=== PATIENT | male | born 1955 | race Caucasian/White ===

== ENCOUNTER 2018-02-02 08:47 | Outpatient (CLI) | payer MEDICARE, SELFPAY ==
[2018-02-02 09:30] VITALS: BP 140/93; PULSE 66; RESP 18; TEMP 36.5
== END 2018-02-02 09:45 | disposition home or self-care (01) ==
LOC: INF 08:50
PROVIDERS: PCP Nurse Practitioner Family; Visit Provider Nurse Practitioner Family
DX: Z79.01 Long term (current) use of anticoagulants (principal); T50.905A Adverse effect of unspecified drugs, medicaments and biological substances, initial encounter
CPT/HCPCS: 96372

== ENCOUNTER → 2018-03-27 13:38 | Outpatient (POV) | payer MEDICARE, SELFPAY ==
[2018-03-27 14:53] LABS: INR 1.83 (0.9-1.1); Prothrombin Time 19.9 seconds (9.4-11.8)
[2018-03-27 16:07] LABS: Basophils % 0.5 % (0.1-2.0); Eosinophils # 0.1 K/mm3 (0.0-0.4); Eosinophils % 1.4 % (0.1-12.0); Hematocrit 42.8 % (42.0-52.0); Hemoglobin 13.5 g/dL (14.1-18.0); Lymphocytes # 1.8 K/mm3 (0.7-4.5); Lymphocytes % 21.6 K/mm3 (10-50); Mean Corpuscular HGB Conc 31.4 g/dL (31.8-35.4); Mean Corpuscular Hemoglobin 30.6 pg (27.0-31.2); Mean Corpuscular Volume 97.3 fl (80-94); Mean Platelet Volume 10.4 fl (7.4-10.4); Monocytes # 0.5 K/mm3 (0.1-1.0); Monocytes % 6.2 % (1.7-9.3); Neutrophils # 5.9 K/mm3 (1.8-7.8); Neutrophils % 70.3 % (37.0-80.0); Platelet Count 146 K/mm3 (142-424); Red Cell Distribution Width 15.6 % (11.5-17.5); White Blood Count 8.5 K/mm3 (4.8-10.8)
[2018-03-27 16:22] LABS: Alanine Aminotransferase 109 U/L (12-78); Albumin Level 3.4 gm/dL (3.4-5.0); Albumin/Globulin Ratio 0.9 (1.1-1.8); Alkaline Phosphatase 74 U/L (46-116); Anion Gap 12.2 mEq/L (5-15); Aspartate Amino Transferase 75 U/L (15-37); Bilirubin,Total 0.4 mg/dL (0.2-1.0); Blood Urea Nitrogen 31 mg/dL (7-18); Calcium 9.1 mg/dL (8.5-10.1); Carbon Dioxide 26 mmol/L (21.0-32.0); Chloride 106 mmol/L (98-107); Creatinine,Serum 2.34 mg/dL (0.70-1.30); Estimated Glomerular Filt Rate 28 ml/min (>60); Ferritin 423 ng/mL (8-388); GFR (African American) 34 ML/MIN (>60); Glucose 82 mg/dL (74-106); Potassium 4.2 mmoL/L (3.5-5.1); Sodium 140 mmol/L (136-145); Total Protein,Serum 7.4 gm/dL (6.4-8.2)
[2018-03-29 08:23] LABS: Alpha-1-Antitrypsin 100 mg/dL (90-200); Immunoglobulin A, Qn 563 mg/dL (61-437); Immunoglobulin G, Qn 1037 mg/dL (700-1600); Iron 95 ug/dL (38-169); Iron Saturation 33 % (15-55); UIBC 193 ug/dL (111-343)
[2018-03-30 06:24] LABS: Actin (Smooth Muscle) Antibody 7 Units (0-19); Mitochondrial (M2) Antibody <20.0 Units (0.0-20.0)
[2018-03-30 06:25] LABS: Angiotensin Converting Enzyme <15 U/L (14-82); Deamidated Gliadin Abs, IgA 1 units (0-19); Deamidated Gliadin Abs, IgG 1 units (0-19); Endomysial IgA Antibody Negative (Negative); Immunoglobulin M, Qn 99 mg/dL (20-172); Liver-Kidney Microsomal Ab <1.0 Units (0.0-20.0); Tissue Transglutaminase IgA Ab <2 U/mL (0-3); Tissue Transglutaminase IgG Ab <2 U/mL (0-5)
[2018-03-30 15:24] LABS: Antinuclear Antibodies, IFA Negative (.); Phenotype (PI) MZ (.)
[2018-03-31 06:17] LABS: ALT (SGPT) P5P 91 IU/L (0-55); Alpha 2-Macroglobulins, Qn 271 mg/dL (110-276); Apolipoprotein A-1 102 mg/dL (101-178); Bilirubin, Total 0.3 mg/dL (0.0-1.2); Fibrosis Score 0.72 (0.00-0.21); GGT 61 IU/L (0-65); Haptoglobin 31 mg/dL (34-200); Necroinflammat Activity Grade A3-Severe activity (.); Necroinflammat Activity Score 0.68 (0.00-0.17)
[2018-03-31 10:27] LABS: Reticulin IgA Antibody Negative titer (Neg:<1:2.5)
== END ==
PROVIDERS: Visit Provider Nurse Practitioner Acute Care
DX: R94.5 Abnormal results of liver function studies (principal); Z79.01 Long term (current) use of anticoagulants; Z51.81 Encounter for therapeutic drug level monitoring; D64.9 Anemia, unspecified
CPT/HCPCS: 36415; 80053; 82104; 82164; 82728; 82784; 83516; 83550; 85025; 85610; 86038; 86255; 86256; 86376

== ENCOUNTER → 2018-04-04 07:51 | Outpatient (CLI) | payer MEDICARE, SELFPAY ==
--- NOTE | 2018-04-04 07:55 | US_ITS ---
US abdomen limited History:Elevated liver enzymes with nausea Ordering Physician:Mila Castro Patient Age: 62 years Comparison:None Findings: Pancreas:Poorly demonstrated due to overlying bowel gas Liver:No focal liver lesions demonstrated. Homogeneous echogenicity. No intrahepatic biliary ductal dilatation evident Right Kidney:3.7 x 4.3 cm right parapelvic renal cyst. Normal size and echogenicity. No hydronephrosis Gallbladder:No gallstones, gallbladder wall thickening, pericholecystic fluid, or biliary dilatation. Impression: Right parapelvic renal cyst otherwise negative right upper quadrant ultrasound. No gallstones
== END ==
PROVIDERS: PCP Nurse Practitioner Family; Visit Provider Nurse Practitioner Acute Care
DX: R94.5 Abnormal results of liver function studies (principal)
CPT/HCPCS: 76705

== ENCOUNTER → 2018-06-23 07:09 | Outpatient (CLI) | payer MEDICARE, SELFPAY ==
[2018-06-23 08:43] LABS: Alanine Aminotransferase 80 U/L (12-78); Albumin Level 2.7 gm/dL (3.4-5.0); Albumin/Globulin Ratio 0.9 (1.1-1.8); Alkaline Phosphatase 46 U/L (46-116); Anion Gap 12.4 mEq/L (5-15); Aspartate Amino Transferase 46 U/L (15-37); Bilirubin,Total 0.4 mg/dL (0.2-1.0); Blood Urea Nitrogen 44 mg/dL (7-18); Calcium 7.8 mg/dL (8.5-10.1); Carbon Dioxide 23 mmol/L (21.0-32.0); Chloride 107 mmol/L (98-107); Chol/HDL Ratio 3.4 (1-3.5); Cholesterol 188 mg/dL (140-200); Creatinine,Serum 2.87 mg/dL (0.70-1.30); Estimated Glomerular Filt Rate 22 ml/min (>60); GFR (African American) 27 ML/MIN (>60); Globulin 3.1 gm/dl (1.3-3.2); Glucose 95 mg/dL (74-106); HDL Cholesterol 55 mg/dL (27-67); LDL Cholesterol 110 mg/dL (0-130); Potassium 4.4 mmoL/L (3.5-5.1); Sodium 138 mmol/L (136-145); Total Protein,Serum 5.8 gm/dL (6.4-8.2); Triglycerides 115 mg/dL (30-200); VLDL Cholesterol 23 mg/dL (0-40)
== END ==
PROVIDERS: PCP Nurse Practitioner Family; Visit Provider Physician Assistant
DX: E78.5 Hyperlipidemia, unspecified (principal); R74.8 Abnormal levels of other serum enzymes
CPT/HCPCS: 36415; 80053; 80061

== ENCOUNTER → 2018-07-10 08:11 | Outpatient (CLI) | payer MEDICARE, SELFPAY ==
[2018-07-10 08:33] LABS: Basophils % 0.3 % (0.1-2.0); Eosinophils % 0.3 % (0.1-12.0); Hematocrit 37.5 % (42.0-52.0); Hemoglobin 12.1 g/dL (14.1-18.0); Lymphocytes # 1.2 K/mm3 (0.7-4.5); Lymphocytes % 12.2 K/mm3 (10-50); Mean Corpuscular HGB Conc 32.4 g/dL (31.8-35.4); Mean Corpuscular Hemoglobin 31.8 pg (27.0-31.2); Mean Platelet Volume 9.2 fl (7.4-10.4); Monocytes # 0.5 K/mm3 (0.1-1.0); Monocytes % 4.8 % (1.7-9.3); Neutrophils # 7.9 K/mm3 (1.8-7.8); Neutrophils % 82.5 % (37.0-80.0); Platelet Count 115 K/mm3 (142-424); Red Blood Count 3.83 M/mm3 (4.60-6.20); Red Cell Distribution Width 15.6 % (11.5-17.5); White Blood Count 9.6 K/mm3 (4.8-10.8)
[2018-07-10 08:42] LABS: Alanine Aminotransferase 169 U/L (12-78); Albumin Level 2.7 gm/dL (3.4-5.0); Albumin/Globulin Ratio 0.8 (1.1-1.8); Alkaline Phosphatase 56 U/L (46-116); Anion Gap 10.7 mEq/L (5-15); Aspartate Amino Transferase 89 U/L (15-37); Bilirubin,Total 0.3 mg/dL (0.2-1.0); Blood Urea Nitrogen 43 mg/dL (7-18); Calcium 8.3 mg/dL (8.5-10.1); Carbon Dioxide 29 mmol/L (21.0-32.0); Chloride 107 mmol/L (98-107); Estimated Glomerular Filt Rate 28 ml/min (>60); GFR (African American) 33 ML/MIN (>60); Globulin 3.5 gm/dl (1.3-3.2); Glucose 178 mg/dL (74-106); Potassium 4.7 mmoL/L (3.5-5.1); Sodium 142 mmol/L (136-145); Total Protein,Serum 6.2 gm/dL (6.4-8.2)
== END ==
PROVIDERS: Nurse Practitioner Acute Care; PCP Nurse Practitioner Family; Visit Provider Internal Medicine Gastroenterology
DX: R94.5 Abnormal results of liver function studies (principal)
CPT/HCPCS: 36415; 80053; 85025

== ENCOUNTER → 2018-08-14 08:44 | Outpatient (POV) | payer MEDICARE, SELFPAY | PROVIDERS: PCP Nurse Practitioner Family; Visit Provider Nurse Practitioner Acute Care | DX: Z00.00 Encounter for general adult medical examination without abnormal findings (principal) ==

== ENCOUNTER → 2018-08-31 11:55 | Outpatient (CLI) | payer MEDICARE, SELFPAY ==
[2018-08-31 12:32] LABS: Anion Gap 13.8 mEq/L (5-15); Blood Urea Nitrogen 44 mg/dL (7-18); Calcium 8.3 mg/dL (8.5-10.1); Carbon Dioxide 27 mmol/L (21.0-32.0); Chloride 101 mmol/L (98-107); Creatinine,Serum 2.73 mg/dL (0.70-1.30); Estimated Glomerular Filt Rate 24 ml/min (>60); GFR (African American) 29 ML/MIN (>60); Glucose 296 mg/dL (74-106); Potassium 4.8 mmoL/L (3.5-5.1); Sodium 137 mmol/L (136-145); Thyroid Stimulating Hormone 1.36 uIU/ml (0.358-3.740)
== END ==
LOC: LAB.DROPOF 11:56 → LAB 09-01 09:11
PROVIDERS: Visit Provider Physician Assistant
DX: I48.91 Unspecified atrial fibrillation (principal); R06.00 Dyspnea, unspecified; I50.9 Heart failure, unspecified; E87.5 Hyperkalemia
CPT/HCPCS: 36415; 80048; 83735; 83880; 84443

== ENCOUNTER → 2018-09-11 07:42 | Outpatient (CLI) | payer MEDICARE, SELFPAY ==
[2018-09-11 14:06] LABS: Alanine Aminotransferase 92 U/L (12-78); Albumin Level 2.9 gm/dL (3.4-5.0); Albumin/Globulin Ratio 0.9 (1.1-1.8); Alkaline Phosphatase 49 U/L (46-116); Anion Gap 13.3 mEq/L (5-15); Aspartate Amino Transferase 51 U/L (15-37); Bilirubin,Total 0.3 mg/dL (0.2-1.0); Blood Urea Nitrogen 44 mg/dL (7-18); Calcium 7.5 mg/dL (8.5-10.1); Carbon Dioxide 26 mmol/L (21.0-32.0); Chloride 105 mmol/L (98-107); Creatinine,Serum 2.65 mg/dL (0.70-1.30); Estimated Glomerular Filt Rate 25 ml/min (>60); GFR (African American) 30 ML/MIN (>60); Globulin 3.1 gm/dl (1.3-3.2); Glucose 183 mg/dL (74-106); Magnesium 1.9 mg/dL (1.4-2.2); Potassium 4.3 mmoL/L (3.5-5.1); Sodium 140 mmol/L (136-145)
== END ==
PROVIDERS: PCP Nurse Practitioner Family; Visit Provider Physician Assistant
DX: I50.9 Heart failure, unspecified (principal); I48.91 Unspecified atrial fibrillation; E87.5 Hyperkalemia; N18.9 Chronic kidney disease, unspecified
CPT/HCPCS: 36415; 80053; 83735; 83880

== ENCOUNTER → 2018-12-11 09:24 | Outpatient (POV) | payer MEDICARE, SELFPAY | PROVIDERS: Visit Provider Nurse Practitioner Acute Care | DX: Z00.00 Encounter for general adult medical examination without abnormal findings (principal) ==

== ENCOUNTER → 2018-12-13 07:29 | Outpatient (CLI) | payer MEDICARE, SELFPAY ==
[2018-12-13 07:53] LABS: Basophils # 0.1 K/mm3 (0-0.2); Basophils % 0.5 % (0.1-2.0); Eosinophils % 0.4 % (0.1-12.0); Hematocrit 42.4 % (42.0-52.0); Hemoglobin 13.8 g/dL (14.1-18.0); Lymphocytes # 2.1 K/mm3 (0.7-4.5); Lymphocytes % 21.8 % (10-50); Mean Corpuscular HGB Conc 32.5 g/dL (31.8-35.4); Mean Corpuscular Hemoglobin 29.5 pg (27.0-31.2); Mean Corpuscular Volume 90.8 fl (80-94); Mean Platelet Volume 9.5 fl (7.4-10.4); Monocytes # 0.5 K/mm3 (0.1-1.0); Neutrophils % 72.2 % (37.0-80.0); Platelet Count 158 K/mm3 (142-424); Red Blood Count 4.67 M/mm3 (4.60-6.20); Red Cell Distribution Width 15.6 % (11.5-17.5); White Blood Count 9.6 K/mm3 (4.8-10.8)
[2018-12-13 08:02] LABS: INR 1.26 (0.9-1.1); Prothrombin Time 12.9 seconds (9.4-11.8)
[2018-12-13 08:05] LABS: Ammonia < 10 umol/L (19-54)
[2018-12-13 08:51] LABS: Alanine Aminotransferase 82 U/L (12-78); Albumin Level 3.4 gm/dL (3.4-5.0); Alkaline Phosphatase 70 U/L (46-116); Anion Gap 10.8 mEq/L (5-15); Aspartate Amino Transferase 39 U/L (15-37); Bilirubin,Total 0.6 mg/dL (0.2-1.0); Blood Urea Nitrogen 31 mg/dL (7-18); Carbon Dioxide 30 mmol/L (21.0-32.0); Chloride 106 mmol/L (98-107); Creatinine,Serum 2.61 mg/dL (0.70-1.30); Estimated Glomerular Filt Rate 25 ml/min (>60); Ferritin 106 ng/mL (8-388); GFR (African American) 30 ML/MIN (>60); Globulin 3.5 gm/dl (1.3-3.2); Glucose 125 mg/dL (74-106); Potassium 4.8 mmoL/L (3.5-5.1); Sodium 142 mmol/L (136-145); Total Protein,Serum 6.9 gm/dL (6.4-8.2)
[2018-12-14 08:25] LABS: Iron 110 ug/dL (38-169); Iron Saturation 31 % (15-55); UIBC 247 ug/dL (111-343)
[2018-12-14 09:49] LABS: AFP, Tumor Marker 5.2 ng/mL (0.0-8.3)
[2018-12-15 10:51] LABS: H. pylori Breath Test Positive (Negative)
== END ==
PROVIDERS: Visit Provider Nurse Practitioner Acute Care
DX: K74.60 Unspecified cirrhosis of liver (principal); B96.81 Helicobacter pylori [H. pylori] as the cause of diseases classified elsewhere
CPT/HCPCS: 36415; 80053; 82105; 82140; 82728; 83013; 83540; 83550; 85025; 85610

== ENCOUNTER → 2018-12-14 07:31 | Outpatient (CLI) | payer MEDICARE, SELFPAY ==
--- NOTE | 2018-12-14 07:43 | US_ITS ---
US abdomen limited History:Cirrhosis Ordering Physician:Mila Castro Patient Age: 63 years Comparison:04/04/2018 Findings: Pancreas:The pancreas is poorly demonstrated and may be better evaluate with CT if clinically warranted Liver:Unremarkable. No obvious mass or abnormal fluid collection. No ductal dilatation. There is appropriate direction of blood flow within a nondilated portal vein. No biliary dilatation Right Kidney:There is moderate right hydronephrosis. Parapelvic renal cyst versus asymmetrical hydronephrosis noted in the lower pole. CT of the kidneys without and with contrast and with delayed imaging may be of further value if clinically warranted Gallbladder:No gallstones, gallbladder wall thickening, pericholecystic fluid, or biliary dilatation. Impression: 1. Unremarkable appearing liver and gallbladder. 2. Right parapelvic renal cyst versus hydronephrosis or combination there of
== END ==
PROVIDERS: PCP Nurse Practitioner Family; Visit Provider Nurse Practitioner Acute Care
DX: K74.60 Unspecified cirrhosis of liver (principal); B96.81 Helicobacter pylori [H. pylori] as the cause of diseases classified elsewhere
CPT/HCPCS: 76705